=== PATIENT | female | born 1945 | race African-American/Black ===

== ENCOUNTER 2017-06-30 07:32 | Day surgery (SDC) | payer OTHER, MEDICAID ==
[2017-06-30] MEDS ORDERED: ALCAINE or OPHTHETIC 1 DOSE AFFEYE ONE (07:45)
[2017-06-30] MEDS ORDERED: ALPHAGAN-P OPHTH 1 DOSE AFFEYE ONE (07:50)
[2017-06-30] MEDS ORDERED: TETRACAINE 0.5% OPHTH 1 DOSE AFFEYE ONE (09:05)
[2017-06-30 12:21] VITALS: BP 149/75
== END 2017-06-30 09:20 | disposition home or self-care (01) ==
LOC: SURG1 07:32
PROVIDERS: ATTEND Ophthalmology
PROC: 08QC3ZZ Repair Right Iris, Percutaneous Approach (ICD-10-PCS; principal; 2017-06-30 09:15)
DX: H40.1110 Primary open-angle glaucoma, right eye, stage unspecified (principal)
CPT/HCPCS: 65855

== ENCOUNTER 2017-07-28 08:30 | Day surgery (SDC) | payer OTHER, MEDICAID ==
[2017-07-28] MEDS ORDERED: ALCAINE or OPHTHETIC 1 DOSE AFFEYE ONE (08:37)
[2017-07-28] MEDS ORDERED: ALPHAGAN-P OPHTH 1 DOSE AFFEYE ONE (08:39)
[2017-07-28] MEDS ORDERED: TETRACAINE 0.5% OPHTH 1 DOSE AFFEYE ONE (09:05)
[2017-07-28 10:40] VITALS: BP 151/78
== END 2017-07-28 09:15 | disposition home or self-care (01) ==
LOC: SURG1 08:30
PROVIDERS: ATTEND Ophthalmology
PROC: 08QD3ZZ Repair Left Iris, Percutaneous Approach (ICD-10-PCS; principal; 2017-07-28 11:45)
DX: H40.1122 Primary open-angle glaucoma, left eye, moderate stage (principal)
CPT/HCPCS: 65855